=== PATIENT | female | born 1965 | race Caucasian/White ===

== ENCOUNTER → 2022-11-25 07:35 | Outpatient (CLI) | payer OTHER, SELFPAY ==
--- NOTE | 2022-11-25 | DI.US.S_ITS ---
PROCEDURE: US SOFT TISSUE HEAD AND NECK INDICATIONS: RIGHT POSTERIOR NECK LUMP TECHNIQUE: Real-time scanning was performed of the neck region of interest, with image documentation. COMPARISON: None. FINDINGS: At the area of concern, there is a heterogenous ill-defined isoechoic nodule within the subcutaneous tissue in the right posterior neck measuring overall 5.9 x 4.5 x 1.6 cm IMPRESSION: Ill-defined isoechoic nodule corresponds with the palpable abnormality. Findings are nonspecific but possibly reflect lipoma. Consider follow-up MRI for confirmation Approved by: Oleg Kee M.D. on 11/25/2022 at 18:11
== END ==
PROVIDERS: PCP Registered Nurse; Referring Provider Registered Nurse; Visit Provider Registered Nurse
DX: R22.1 Localized swelling, mass and lump, neck (principal)
CPT/HCPCS: 76536

== ENCOUNTER 2022-12-04 16:55 | Emergency (ER) | payer OTHER, SELFPAY ==
[2022-12-04] VITALS (29 sets, daily range): BP systolic 133–218; BP diastolic 66–104; PULSE 60–94; RESP 9–43; TEMP 36.6; O2SAT 96–100; BMI 32.8
--- NOTE | 2022-12-04 17:15 | DI.RAD.S_ITS ---
PROCEDURE: XR CHEST 1V INDICATIONS: chest pain TECHNIQUE: One view of the chest was acquired. COMPARISON: None. FINDINGS: Surgical changes and devices: None. Lungs and pleura: Lungs are clear. No pleural effusions or pneumothorax. Mediastinum: Mediastinal contours appear normal. Heart size is normal. Bones and chest wall: No suspicious bony lesions. Overlying soft tissues appear unremarkable. IMPRESSION: No acute cardiopulmonary disease. Dictated by: Edgard Hsieh M.D. on 12/04/2022 at 17:41 Approved by: Edgard Hsieh M.D. on 12/04/2022 at 17:41
[2022-12-04 17:47] LABS: Add Manual Diff / Slide Review NO; Basophils Absolute Auto 100 /uL (0-100); Basophils Percent Auto 0.9 % (0-2); Eosinophils Absolute Auto 0 /uL (0-450); Eosinophils Percent Auto 0.5 % (2-4); Hematocrit 44.5 % (36-46); Hemoglobin 15.3 g/dL (12.0-16.0); Lymphocytes Absolute Auto 3200 /uL (1100-4500); Lymphocytes Percent Auto 39.7 % (25-40); Mean Corpuscular HGB Conc 34.3 % (30-36); Mean Corpuscular Hemoglobin 31.5 PG (26-34); Mean Corpuscular Volume 91.9 fL (80-100); Monocytes Absolute Auto 400 /uL (0-900); Monocytes Percent Auto 5.4 % (3-14); Neutrophils Absolute Auto 4400 /uL (1500-7000); Neutrophils Percent Auto 53.5 % (50-75); Platelet Count 336 X10^3/uL (150-400); Red Blood Cell Count 4.85 X10^6/uL (4.0-5.2); Red Cell Distribution Width 14.5 % (11.6-14.8); White Blood Cell Count 8.1 X10^3/uL (4.5-11.0)
[2022-12-04 17:51] LABS: PTT Partial Thromboplastin Tim 31 SECONDS (26-36)
[2022-12-04 18:45] LABS: Alanine Aminotransferase 25 IU/L (<35); Albumin 4.7 g/dL (3.5-5.0); Albumin Globulin Ratio 1.6 (1.0-2.8); Alkaline Phosphatase 72 U/L (38-126); Aspartate Aminotransferase 27 IU/L (14-36); BUN Creatinine Ratio 14.5 (6-22); Bilirubin Total 0.4 mg/dL (0.2-1.3); Blood Urea Nitrogen 11 mg/dL (7-17); Calcium 9.2 mg/dL (8.4-10.2); Carbon Dioxide 27 mmol/L (22-32); Chloride 99 mmol/L (98-107); Creatine Kinase 161 U/L (30-135); Estimated Glomerular Filt Rate > 60 mL/min (>60); Globulin 2.9 g/dL (1.7-4.1); Glucose 90 mg/dL (70-100); HEMOLYSIS < 15 (0-50); Lipase 46 U/L (23-300); Magnesium 2.2 mg/dL (1.6-2.3); Potassium 4.1 mmol/L (3.4-5.1); Sodium 136 mmol/L (137-145); Total Protein 7.6 g/dL (6.3-8.2)
[2022-12-04 18:56] LABS: Troponin I < 0.012 ng/mL (0.01-0.034)
--- NOTE | 2022-12-04 19:36 | ED_ITS ---
HPI - Chest Pain General Chief Complaint: Chest Pain Stated Complaint: Blood pressure issues Time Seen by Provider: 12/04/22 18:08 Source: patient Mode of arrival: Ambulatory Limitations: no limitations History of Present Illness HPI narrative: 57-year-old woman with a history of hypertension initially requiring blood pressure medications than no medications required after some weight loss presents with 2 months of intermittent chest pain. She describes central chest pressure over the lower sternum not associated with diaphoresis, palpitations or dyspnea. She notes that initially was happen maybe once or twice every other week and lasting minutes. She describes increasing episodes of pain, duration and intensity over the last 2 months. She did see her primary care doctor at [facility] and a Zio patch has been ordered. She has been following her blood pressures and notes when she is having pain blood pressures are elevated and then once the pain resolves there down in the 140/80 range. She has not restarted any hypertensive medications. She has no personal history or family history of coronary artery disease. The pain does not seem to be associated with exercise, eating, fasting, positioning. On the 30 of November she had some minor pain and went out and both the lawn using hand more and did not have any exacerbation of her pain and the pain had completely resolved by the time along with finished. Today she is had episodes over the course of today was seen at her primary care doctor's office this afternoon and brought down to the emergency room for more thorough evaluation. She reports no recent weight loss, lower extremity edema, palpitations. No nausea vomiting or diarrhea. Related Data Allergies Allergy/AdvReac Type Severity Reaction Status Date / Time lisinopril AdvReac Mild Cough Verified 12/04/22 17:14 Review of Systems Review of Systems Narrative: Pertinent positive and negative findings as per HPI Patient History Medical History (Updated 12/04/22 @ 21:41 by Keesha Sears MD) Hypertension Social History Smoking Status: Never smoker Smoking Status: Never smoker Substance Use Type: does not use Exam Initial Vital Signs Initial Vital Signs: Vital Signs Temperature 97.9 F 12/04/22 17:06 Pulse Rate 78 12/04/22 17:06 Respiratory Rate 18 12/04/22 17:06 Blood Pressure 200/104 H 12/04/22 17:06 Pulse Oximetry 100 12/04/22 17:06 Oxygen Delivery Method Room Air 12/04/22 17:06 General: Healthy appearing, in no acute distress. Able to give a complete and coherent history. Well-nourished well-developed HEENT: Moist mucous membranes, normal sclera with reactive pupils, Neck: No JVD, supple Respiratory: Lungs are clear to auscultation, no wheezing no rales no rhonchi. Full and symmetrical air movement Cardiac: Regular rate and rhythm no murmurs no bruits. She does have some reproducible chest pain over the lower portion of her sternum that she thinks is fairly similar to the pain that she is been experiencing but isn't entirely sure. Abdomen: Soft, nontender, good bowel tones, no flank pain Skin: Warm and dry, no rashes Neurologic: Grossly neurologically intact with no obvious asymmetries or abnormalities Extremities: No trauma, well perfused Psych: Cooperative, appropriate insight and affect Course Orders Ordered: ED Orders 12/04/22 17:12 EKG-12 Lead Stat 12/04/22 17:15 XR chest 1V Stat 12/04/22 17:35 Complete Blood Count AUTO DIFF Stat PTT Partial Thromboplastin Miles Stat Prothrombin Time INR Stat 12/04/22 18:20 Comprehensive Metabolic Panel Stat Lipase Stat Magnesium Stat Troponin & CK Cardiac Panel Stat 12/04/22 19:50 EKG-12 Lead Stat 12/04/22 20:05 Troponin I Stat Nitroglycerin (Nitroglycerin 0.4 Mg Sl Tab) 0.4 mg SL [id number] PRN PRN Reason: Chest Pain Last Admin: 12/04/22 20:06 Dose: 0.4 mg Documented By: Admin: 12/04/22 20:00 Dose: 0.4 mg Documented By: GABY Discontinued Medications Aspirin (Aspirin 81 Mg Chew Tab) 324 mg PO NOW ONE Stop: 12/04/22 17:16 Last Admin: 12/04/22 17:17 Dose: Not Given Documented By: MILES Ketorolac Tromethamine (Ketorolac 30 Mg/Ml Vial) 15 mg IV NOW ONE Stop: 12/04/22 19:51 Last Admin: 12/04/22 20:33 Dose: 15 mg Documented By: JUAN Losartan Potassium (Losartan 50 Mg Tablet) 50 mg PO NOW ONE Stop: 12/04/22 20:32 Last Admin: 12/04/22 20:37 Dose: 50 mg Documented By: JUAN Vital Signs Vital signs: Vital Signs - 8 hr 12/04/22 17:06 12/04/22 17:33 12/04/22 20:00 Temperature 97.9 F Pulse Rate 78 77 Respiratory Rate 18 Blood Pressure 200/104 H 142/81 H 212/96 H Pulse Oximetry 100 Oxygen Delivery Method Room Air 12/04/22 20:06 12/04/22 19:22 12/04/22 19:23 Temperature Pulse Rate 94 H Respiratory Rate Blood Pressure 166/91 H 218/99 H Pulse Oximetry 100 Oxygen Delivery Method 12/04/22 19:23 12/04/22 19:30 12/04/22 19:31 Temperature Pulse Rate 79 77 Respiratory Rate 43 H 13 Blood Pressure 157/85 H Pulse Oximetry 97 97 Oxygen Delivery Method 12/04/22 19:31 12/04/22 20:00 12/04/22 20:01 Temperature Pulse Rate 80 77 Respiratory Rate 19 15 Blood Pressure 212/96 H Pulse Oximetry 98 98 Oxygen Delivery Method 12/04/22 20:01 12/04/22 20:02 12/04/22 20:02 Temperature Pulse Rate 78 82 Respiratory Rate 19 16 Blood Pressure 166/91 H Pulse Oximetry 97 97 Oxygen Delivery Method 12/04/22 20:24 12/04/22 20:25 12/04/22 20:37 Temperature Pulse Rate 76 60 Respiratory Rate 9 L Blood Pressure 182/88 H 164/79 H Pulse Oximetry 99 Oxygen Delivery Method MDM - Chest Pain Lab Data 12/04/22 17:35 12/04/22 18:20 Labs: Lab Results 12/04/22 12/04/22 12/04/22 Range/Units 17:35 17:35 18:20 WBC 8.1 (4.5-11.0) X10^3/uL RBC 4.85 (4.0-5.2) X10^6/uL Hgb 15.3 (12.0-16.0) g/dL Hct 44.5 (36-46) % MCV 91.9 (80-100) fL MCH 31.5 (26-34) PG MCHC 34.3 (30-36) % RDW 14.5 (11.6-14.8) % Plt Count 336 (150-400) X10^3/uL Neut % (Auto) 53.5 (50-75) % Lymph % (Auto) 39.7 (25-40) % [place] % (Auto) 5.4 (3-14) % Eos % (Auto) 0.5 L (2-4) % Baso % (Auto) 0.9 (0-2) % Neut # (Auto) 4400 (0256-2632) /uL Lymph # (Auto) 3200 (4960-9238) /uL [place] # (Auto) 400 (0-900) /uL Eos # (Auto) 0 (0-450) /uL Baso # (Auto) 100 (0-100) /uL PT 11.0 (10.1-12.7) SECONDS INR 1.0 (0.9-1.3) APTT 31 (26-36) SECONDS Sodium 136 L (137-145) mmol/L Potassium 4.1 (3.4-5.1) mmol/L Chloride 99 (98-107) mmol/L Carbon Dioxide 27 (22-32) mmol/L BUN 11 (7-17) mg/dL Creatinine 0.76 (0.52-1.04) mg/dL Estimated GFR > 60 (>60) mL/min BUN/Creatinine Ratio 14.5 (6-22) Glucose 90 (70-100) mg/dL Calcium 9.2 (8.4-10.2) mg/dL Magnesium 2.2 (1.6-2.3) mg/dL Total Bilirubin 0.4 (0.2-1.3) mg/dL AST 27 (14-36) IU/L ALT 25 (<35) IU/L Alkaline Phosphatase 72 (38-126) U/L Total Creatine Kinase 161 H (30-135) U/L CK-MB (CK-2) TNP CK-MB (CK-2) Rel Index TNP Troponin I < 0.012 (0.01-0.034) ng/mL Total Protein 7.6 (6.3-8.2) g/dL Albumin 4.7 (3.5-5.0) g/dL Globulin 2.9 (1.7-4.1) g/dL Albumin/Globulin Ratio 1.6 (1.0-2.8) Lipase 46 (23-300) U/L 06/09/23 Range/Units 20:05 WBC (4.5-11.0) X10^3/uL RBC (4.0-5.2) X10^6/uL Hgb (12.0-16.0) g/dL Hct (36-46) % MCV (80-100) fL MCH (26-34) PG MCHC (30-36) % RDW (11.6-14.8) % Plt Count (150-400) X10^3/uL Neut % (Auto) (50-75) % Lymph % (Auto) (25-40) % [place] % (Auto) (3-14) % Eos % (Auto) (2-4) % Baso % (Auto) (0-2) % Neut # (Auto) (0890-2500) /uL Lymph # (Auto) (4865-1482) /uL [place] # (Auto) (0-900) /uL Eos # (Auto) (0-450) /uL Baso # (Auto) (0-100) /uL PT (10.1-12.7) SECONDS INR (0.9-1.3) APTT (26-36) SECONDS Sodium (137-145) mmol/L Potassium (3.4-5.1) mmol/L Chloride (98-107) mmol/L Carbon Dioxide (22-32) mmol/L BUN (7-17) mg/dL Creatinine (0.52-1.04) mg/dL Estimated GFR (>60) mL/min BUN/Creatinine Ratio (6-22) Glucose (70-100) mg/dL Calcium (8.4-10.2) mg/dL Magnesium (1.6-2.3) mg/dL Total Bilirubin (0.2-1.3) mg/dL AST (14-36) IU/L ALT (<35) IU/L Alkaline Phosphatase (38-126) U/L Total Creatine Kinase (30-135) U/L CK-MB (CK-2) CK-MB (CK-2) Rel Index Troponin I < 0.012 (0.01-0.034) ng/mL Total Protein (6.3-8.2) g/dL Albumin (3.5-5.0) g/dL Globulin (1.7-4.1) g/dL Albumin/Globulin Ratio (1.0-2.8) Lipase (23-300) U/L MDM Narrative Medical decision making narrative: CC: Chest pain, acute finding with uncertain prognosis Complicating co-morbidities: Otherwise healthy patient Data collected from: patient, Differential considered: Acute coronary syndrome, costochondritis, reflux, pulmonary embolism, pneumonia, pneumothorax Exam documented above, pertinent findings include: Benign exam with some reproducible pain with palpation along the xiphoid process and lower sternal costochondral margins. Lab Test results independently reviewed as above. Pertinent findings: CBC is unremarkable with no evidence of leukocytosis or acute anemia Chemistries are reassuring Initial troponin is unremarkable Repeat troponin is unremarkable Independently reviewed EKG Sinus rhythm at a rate of 84. Normal intervals, normal axis. No acute ischemic changes Repeat EKG with chest pain present continues to be unremarkable with sinus rhythm at a rate of 86. Imaging studies independently reviewed: Chest x-ray has no significant acute changes Treatments: Nitroglycerin sublingual x2, Toradol Re-evaluations: 57-year-old woman who is had increasing episodes chest pain. It does seem to be reproducible. Pain did resolve with nitro but then spontan eously recurred and resolved without any intervention. I am not sure if the nitroglycerin actually influenced anything at all. Heart score is 2 points which puts her at low risk and hospitalization is not indicated today. Given the tenderness along the lower borders of her sternum and xiphoid process I suspect that this is a costochondritis type process. Will ask her to use ibuprofen and Tylenol on a scheduled basis over the next 2-3 days and re- evaluate pain. She did talk to her primary doctor about this issue already and a Zio patch was ordered, I think that some type of formal cardiac stress testing as an outpatient is going to be very appropriate and I have encouraged her to follow-up with her primary care doctor. Clearly reviewed signs and symptoms of worsening coronary issues as well as musculoskeletal pain. At this point she is safe for discharge home. Questions are answered Discharge Plan Departure Patient Disposition: Home Clinical Impression: Costalchondritis, Atypical chest pain Instructions: DI for Atypical Chest Pain Activity Restrictions/Additional Instructions: Thank you for coming in today With your symptoms increasing in intensity and frequency over the last 2 months there certainly is some concern for heart attack like syndrome. However when yo ur pain can be essentially reproduced by pressing on the lower portion of your breast bone, costochondritis is much more likely diagnosis. Your cardiac workup today was unremarkable. you responded nicely to Toradol which typically helps with costochondritis I am going to suggest that you use to [id number] ibuprofen, total of 400 mg with a single Tylenol every 8 hours for the next 2 days to see if this helps influence her pain. I am glad that you do have a Zio patch coming however this is going to look at heart rate and rhythm. You think that you probably will benefit from outpatient cardiac stress testing, such as a nuclear medicine cardiac stress test, and I encourage you to discuss this with your primary care provider. If you find that you are getting worse or develop any new symptoms, please feel free to return to the emergency department for further evaluation. Referrals: Lor Flores ARNP [Primary Care Provider] - Stand Alone Forms: Patient Portal/API
[2022-12-04] MEDS: NITROGLYCERIN 0.4 MG SL TAB SL ×2 (20:00→20:06)
--- NOTE | 2022-12-04 20:25 | PC.NURSE ---
Pt received 2 SL NTG,pain was gone and then returned shortly after the 2nd dose. Dr Sears aware,ordered to give 3rd dose. Verified pts pain prior to 3rd dose,she stated that it was gone now.
[2022-12-04 20:33] LABS: Troponin I < 0.012 ng/mL (0.01-0.034)
[2022-12-04] MEDS: KETOROLAC 30 MG/ML VIAL 15 MG IV (20:33)
[2022-12-04] MEDS: LOSARTAN 50 MG TABLET PO (20:37)
== END 2022-12-04 21:50 | disposition home or self-care (01) ==
PROVIDERS: Emergency Medicine; Emergency Provider Emergency Medicine; PCP Registered Nurse
DX: M94.0 Chondrocostal junction syndrome [Tietze] (principal); R07.89 Other chest pain
CPT/HCPCS: 36415; 71045; 80053; 82550; 83690; 83735; 84484; 85025; 85610; 85730; 93005; 93010; 96374; 99284; J1885

== ENCOUNTER 2022-12-22 10:24 | Day surgery (SDC) | payer OTHER, SELFPAY ==
[2022-12-14 11:27] VITALS: BMI 33.4
--- NOTE | 2022-12-22 | PATH_ITS ---
[facility] Accession Number: [id number] No. of containers..01 Tissue . 01 Material submitted: . neck - RIGHT POSTERIOR NECK MASS . 01 Diagnosis: Right Posterior Neck, Excision: Mature fibroadipose tissue, consistent with lipoma. [facility] 12/28/2022 0953 Local . 01 Electronically signed: . Hunter Hare MD, Dermatopathologist NPI- [id number] . 01 Gross description: . RIGHT POSTERIOR NECK MASS: Received in formalin is 1 piece of adipose tissue measuring 6.5 x 4.0 x 2.5 cm. Laboratory Scientist sections are submitted in 3 cassettes. /[facility] 12/25/2022 1249 Local . 01 Pathologist provided ICD-10: D17.9 . 01 CPT . 789321 Specimen Comment: A courtesy copy of this report has been sent to [phone] Performed at: 01 [facility] [address] [place] [address], [place], [place] [id number] MD Ernico Aggarwal MD Phone: [phone]
[2022-12-22 11:09] VITALS: BP 153/90; PULSE 93; RESP 16; TEMP 36.4; O2SAT 96; BMI 33.4
--- NOTE | 2022-12-22 11:27 | PM.PREOP ---
Pre-operative Note COVID-19 COVID-19 status: Not tested Interval Note History & Physical reviewed/Exam performed by Physician: Yes Changes to H&P: No ASA Class (for procedural sedation): II
--- NOTE | 2022-12-22 12:26 | SUR.OPER ---
Lateral on a diaz bag, head on pillow, gel axillary roll in place, bottom leg bent with gel pad under knee to foot, upper leg straight and supported with pillows. Upper arm supported by pillows and secured over bottom arm to padded arm board. Safety belt at hip, tape over blanket lower legs.
[2022-12-22] MEDS: BUPIVACAINE 0.5% (PF) 30 ML, EPINEPHrine 0.15 MG INJ (12:51)
[2022-12-22 13:14] VITALS: BP 141/74; PULSE 113; RESP 10; TEMP 36.1; O2SAT 96
[2022-12-22 13:19] VITALS: BP 140/76; PULSE 113; RESP 12; O2SAT 95
[2022-12-22 13:24] VITALS: BP 129/64; PULSE 111; RESP 12; O2SAT 95
[2022-12-22 13:29] VITALS: BP 132/73; BP 137/68; PULSE 106; PULSE 107; RESP 12; TEMP 36; O2SAT 93; O2SAT 94
--- NOTE | 2022-12-22 13:34 | P.OP_ITS ---
Operative Date/Time/Diagnoses Date of procedure: 12/22/22 Time of procedure: 13:34 Pre-op diagnosis: Right posterior neck lipoma Post-op diagnosis: same Procedure & Clinicians Procedure: Excisional biopsy of right posterior neck lipoma Same procedure as scheduled: Yes Surgeon: Justin Navas English Language Learner Tutor: Terrell Soni Anesthesia Type: General Operative Notes Procedure in detail: The patient was marked in the preoperative holding area and consent was obtained. The patient was brought to the operating room and general endotracheal anesthesia was induced. No antibiotics were indicated due to the wound class of 1. The patient was then positioned in the left lateral decubitus position with the right side up on a beanbag. She was secured to the table and the right posterior neck was prepped and draped in the usual fashion. A time-out was performed. We made a 7 cm transverse incision over the palpable mass. We dissected down to the mass which appeared to be a lipoma. The mass was abutting the fascia of the underlying trapezius muscle. Local was injected into the fascia as well. A bleeder was cauterized. The mass was completely excised. There was good hemostasis at the end of the excision within the wound cavity. We then closed the wound cavity in layers using multiple interrupted 3- 0 Vicryl dermal sutures and a running 4-0 Monocryl subcuticular closure. Steri- Strips and a bandage were applied. The patient was awakened and brought to recovery room. EBL: 10 mL Specimen: Right posterior neck lipoma Post-operative Condition: stable Disposition: PACU
== END 2022-12-22 14:00 | disposition home or self-care (01) ==
PROVIDERS: PCP Registered Nurse; Referring Provider Surgery; Visit Provider Surgery
PROC: (CPT 21552; principal; 2022-12-22 12:15)
DX: D17.0 Benign lipomatous neoplasm of skin and subcutaneous tissue of head, face and neck (principal)
CPT/HCPCS: 21552; J0171; J0330; J1100; J1885; J2405; J2704; J3010